=== PATIENT | male | born 1990 | race Caucasian/White ===

== ENCOUNTER 2019-03-02 21:56 | Emergency (ER) | payer MEDICAID ==
[~2019-03-02] VITALS: Ht 170.2 cm; Wt 78.9 kg
[2019-03-02 22:01] VITALS: BP 130/63
[2019-03-02 23:50] VITALS: BP 113/52
== END 2019-03-02 23:50 | disposition home or self-care (01) ==
LOC: MED 21:56
DX: S83.92XA Sprain of unspecified site of left knee, initial encounter (principal); W17.89XA Other fall from one level to another, initial encounter; Y93.89 Activity, other specified; Y92.89 Other specified places as the place of occurrence of the external cause; Y99.8 Other external cause status
CPT/HCPCS: 73562; 99283; Q0092

== ENCOUNTER 2023-12-21 14:07 | Emergency (ER) | payer BC, MEDICAID ==
[~2023-12-21] VITALS: Ht 170.2 cm; Wt 81.6 kg
[2023-12-21 14:48] VITALS: BP 134/93; PULSE 62; RESP 20; TEMP 97.4; O2SAT 96
[2023-12-21 15:36] LABS: BASOPHILS % (AUTO) 0.2 % (0.0-2.0); EOSINOPHILS % (AUTO) 0.3 % (0.0-4.0); HEMATOCRIT 45.9 % (36-52); HEMOGLOBIN 15.8 g/dL (12.0-18.0); LYMPHOCYTES # (AUTO) 0.9 K/uL (2.0-11.5); LYMPHOCYTES % (AUTO) 12.7 % (20.5-51.1); MEAN CORPUSCULAR HEMOGLOBIN 31 pg (27-31); MEAN CORPUSCULAR HGB CONC 34 g/dL (33-37); MEAN CORPUSCULAR VOLUME 90.9 fL (80-94); MONOCYTES # (AUTO) 0.3 K/uL (0.8-1.0); MONOCYTES % (AUTO) 3.8 % (1.7-9.3); PLATELET COUNT (AUTO) 312 K/uL (140-450); RED BLOOD CELL COUNT(AUTO) 5.05 MIL/uL (4.20-6.10); RED CELL DISTRIBUTION WIDTH 13.5 % (11.6-13.7); WHITE BLOOD COUNT (AUTO) 7.2 K/uL (4.8-10.8)
[2023-12-21] MEDS: NACL 0.9% 1,000 ML IV ONE (15:41)
[2023-12-21] MEDS: ONDANSETRON 4 MG/2 ML VIAL IVP ONE (15:42)
[2023-12-21 15:51] LABS: ANION GAP 15.1 (8-16); CALCIUM 8.7 mg/dL (8.5-10.1); CARBON DIOXIDE 24.7 mmol/L (21-32); CREATININE 0.8 mg/dL (0.6-1.3); POTASSIUM 3.8 mmol/L (3.5-5.1)
[2023-12-21 15:55] LABS: ACETAMINOPHEN 5.1 ug/ml (10-30); ALANINE AMINOTRANSFERASE 30 U/L (12-78); ALBUMIN 4.4 g/dL (3.4-5.0); ALCOHOL, BLOOD < 3 mg/dL (<10); ALKALINE PHOSPHATASE 57 U/L (50-136); ASPARTATE AMINOTRANSFERASE 12 U/L (15-37); BILIRUBIN,DIRECT 0.2 mg/dL (0.0-0.3); LIPASE 23 U/L (16-77); SALICYLATE < 2.8 mg/dL (2.8-20.0); TOTAL BILIRUBIN 0.7 mg/dL (0.0-1.0); TOTAL PROTEIN, SERUM 7.4 g/dL (6.4-8.2)
[2023-12-21 17:06] LABS: APPEARANCE,URINE CLEAR (CLEAR); BILIRUBIN,URINE NEGATIVE (NEGATIVE); BLOOD, URINE NEGATIVE (NEGATIVE); COLOR,URINE YELLOW (YELLOW); LEUKOCYTE ESTERASE ,URINE NEGATIVE (NEGATIVE); NITRITE, URINE NEGATIVE (NEGATIVE); PROTEIN,URINE NEGATIVE (NEGATIVE); UGLUCOSE NEGATIVE (NEGATIVE); UROBILINOGEN,URINE 0.2 EU/dL (0.2 - 1)
[2023-12-21] MEDS ORDERED: ONDA-188 SL (17:17)
[2023-12-21 18:00] VITALS: BP 96/69; PULSE 55; RESP 17; TEMP 98; O2SAT 100
== END 2023-12-21 18:00 | disposition home or self-care (01) ==
LOC: MED 14:07
DX: T36.0X1A Poisoning by penicillins, accidental (unintentional), initial encounter (principal); R11.2 Nausea with vomiting, unspecified; Z79.899 Other long term (current) drug therapy; Y92.89 Other specified places as the place of occurrence of the external cause
CPT/HCPCS: 36415; 80048; 80076; 81003; 83690; 85025; 96361; 96374; 99285; G0480; G0482; J2405; J7030